=== PATIENT | male | born 1950 | race Caucasian/White ===

== ENCOUNTER 2019-05-11 04:00 | Emergency (ER) | payer MEDICARE, OTHER ==
[~2019-05-11] VITALS: Ht 180.3 cm; Wt 90.0 kg
[2019-05-11] MEDS ORDERED: ASPI81CH33 PO (04:08)
[2019-05-11] MEDS ORDERED: OXYMETAZOLINE NASAL SPRAY (AFRIN) ONE (04:30)
[2019-05-11] MEDS ORDERED: TRANEXAMIC ACID 100 MG/ML 10ML VIAL ONE (04:30)
[2019-05-11] MEDS ORDERED: hydrALAZINE INJ 20 MG/ML VIAL IV ONE (05:45)
[2019-05-11 06:04] LABS: BASO % 0.5 % (0.0-1.0); EOS % 0.5 % (0.0-3.0); HEMATOCRIT 50.3 % (42.0-52.0); HEMOGLOBIN 16.9 g/dl (13.5-17.5); LYMPH # 1.1 10^3/uL (1.5-4.5); MEAN CORPUSCULAR HEMOGLOBIN 29.6 pg (27.0-33.0); MEAN CORPUSCULAR HGB CONC 33.6 g/dl (32.0-36.5); MEAN CORPUSCULAR VOLUME 88.1 fl (80.0-96.0); MONO # 0.5 10^3/uL (0.0-0.8); NEUTROPHILS # 4.1 10^3/uL (1.8-7.7); NEUTROPHILS % 71.7 % (36.0-66.0); PLATELET COUNT, AUTOMATED 216 10^3/uL (150-450); RED BLOOD COUNT 5.71 10^6/uL (4.30-6.10); WHITE BLOOD COUNT 5.8 10^3/uL (4.0-10.0)
[2019-05-11] MEDS ORDERED: LABETALOL HCL 100 MG/20 ML VIAL IV STA (06:07)
[2019-05-11 06:19] LABS: INR 1.05; PROTHROMBIN TIME 13.4 SECONDS (11.8-14.0)
[2019-05-11 06:20] LABS: BLOOD UREA NITROGEN 22 MG/DL (7-18); CALCIUM LEVEL 8.4 MG/DL (8.8-10.2); CARBON DIOXIDE LEVEL 30 MEQ/L (21-32); CHLORIDE LEVEL 108 MEQ/L (98-107); CREATININE FOR GFR 0.98 MG/DL (0.70-1.30); GLOMERULAR FILTRATION RATE > 60.0 (>49); GLUCOSE, FASTING 121 MG/DL (70-100); PARTIAL THROMBOPLASTIN TIME 35.9 SECONDS (25.0-38.4); POTASSIUM SERUM 4.4 MEQ/L (3.5-5.1); SODIUM LEVEL 141 MEQ/L (136-145)
[2019-05-11 06:39] VITALS: BP 202/98
[2019-05-11] MEDS ORDERED: LORazepam 2 MG/ML VIAL (J2060) IV STA (07:11)
[2019-05-11 08:31] VITALS: BP 153/82
== END 2019-05-11 08:55 | disposition home or self-care (01) ==
LOC: M ED 04:00
DX: R04.0 Epistaxis (principal); I10 Essential (primary) hypertension; Z79.82 Long term (current) use of aspirin; F17.210 Nicotine dependence, cigarettes, uncomplicated
CPT/HCPCS: 36415; 80048; 85025; 85610; 85730; 86850; 86900; 86901; 96374; 96375; 99284; J2060

== ENCOUNTER 2019-05-13 08:19 | Emergency (ER) | payer MEDICARE, OTHER ==
[~2019-05-13] VITALS: Ht 180.3 cm; Wt 91.6 kg
[~2019-05-13 08:19] MED LIST: ASPI81CH33 PO
[2019-05-13] MEDS ORDERED: TRANEXAMIC ACID 100 MG/ML 10ML VIAL ONE (09:45)
[2019-05-13 12:03] VITALS: BP 200/96
== END 2019-05-13 12:18 | disposition home or self-care (01) ==
LOC: M ED 08:19
DX: R04.0 Epistaxis (principal); I10 Essential (primary) hypertension; Z79.82 Long term (current) use of aspirin